=== PATIENT | female | born 1980 | race Caucasian/White ===

== ENCOUNTER → 2017-12-05 | Outpatient (CLI) | payer BC ==
[2017-12-05 13:42] LABS: BASO % 0.9 %; BASO ABS # 0.04 K/uL (0-0.2); EOS % 2.1 %; EOS ABS # 0.09 K/uL (0-0.5); HEMOGLOBIN 13.8 g/dL (12.0-16.0); IG# 0.01 K/uL (0.00-0.02); LYMPH % 30.6 %; LYMPH ABS # 1.33 K/uL (1.2-3.4); MEAN CELL VOLUME 87.4 fL (80-100); MEAN CORPUSCULAR HEMOGLOBIN 29.4 pg (25-34); MEAN CORPUSCULAR HGB CONC 33.7 g/dl (32-36); MONO % 8.8 %; MONO ABS # 0.38 K/uL (0.11-0.59); NEUT % 57.4 %; NEUT ABS # 2.49 K/uL (1.4-6.5); PLATELET COUNT 261 K/uL (130-400); RED CELL DISTRIBUTION WIDTH SD 41.6 fL (36.4-46.3); WHITE BLOOD COUNT 4.34 K/uL (4.8-10.8)
[2017-12-05 14:07] LABS: BLOOD UREA NITROGEN 10 mg/dl (7-18); CALCIUM 9.7 mg/dl (8.5-10.1); CARBON DIOXIDE 27 mmol/L (21-32); CREATININE 0.74 mg/dl (0.60-1.20); GLUCOSE 88 mg/dl (70-99); SODIUM 140 mmol/L (136-145)
== END | disposition home or self-care (01) ==
LOC: C.LABBC 10:39
PROVIDERS: ATTEND Orthopaedic Surgery
DX: Z01.818 Encounter for other preprocedural examination (principal)

== ENCOUNTER → 2017-12-22 | Day surgery (SDC) | payer BC ==
[2017-12-20 10:58] VITALS: Ht 165.1 cm; Wt 60.5 kg
[~2017-12-22] VITALS: Ht 165.1 cm; Wt 60.5 kg
[~2017-12-22] MED LIST: ATROPINE SULFATE 0.1 MG/ML 5ML SYR IV PRN; BUPIVACAINE 0.25% 30 ML VIAL ONE; CLINDAMYCIN PHOS 150 MG/ML 2 ML VIAL IV SCH; DEXAMETHASONE SOD INJ 4 MG/ML VIAL ONE; DiphenhydrAMINE HCL 50 MG/ML VIAL ONE; EpHEDrine SULFATE INJ 50 MG/ML AMP IV PRN; EpINEphrine INJ 1MG/ML AMP 1 MG/ML AMP ONE; FENTANYL CITRATE INJ 50 MCG/1 ML 2 ML VIAL IV PRN; FENTANYL CITRATE INJ 50 MCG/1 ML 2 ML VIAL ONE; FLUMAZENIL 0.1 MG/1 ML 10 ML VIAL IV PRN; FLUT0.15; HYDR200T5 PO; HYDROmorphone INJ 0.5 MG/0.5 ML SYR ONE; HYDROmorphone INJ 2 MG/ML SYR/VIAL IV PRN; KETO10TA PO; KETOROLAC TROMETHAMINE 30 MG/ML VIAL ONE; LABETALOL HCL IV 5 MG/ML 20ML IV PRN; LACTATED RINGER'S 1000ML 1,000 ML IV SCH; MIDAZOLAM HCL 1 MG/ML 2ML VIAL ONE; NALOXONE HCL 0.4 MG/1 ML VIAL/CARP IV PRN; NURSING VERBAL MED ORDER ONE; ONDANSETRON INJ 2 MG/ML 2 ML VIAL IV PRN; ONDANSETRON INJ 2 MG/ML 2 ML VIAL ONE; OXYC-57 PO; OXYCODONE/ACETAMINOPHEN 5-325 TAB PO PRN; PATIENT'S ALLERGY INFO NEEDS ENTERED SCH; PHENYLEPHRINE 100MCG/ML 5ML SYR IV PRN; PHENYLEPHRINE HCL INJ 10 MG/ML VIAL ONE; PROPOFOL IV EMULSION 10 MG/ML 20 ML VIAL IV ONE; PRT/20 PO; ROPIVACAINE 0.5% 5 MG/ML 30 ML VIAL ONE; SODIUM CHLORIDE 0.9% 1000ML 1,000 ML IV SCH
--- NOTE | 2017-12-22 09:37 | History & Physical Bridge Note ---
H&P Re-Evaluation Bridge Note: I have examined the patient, reviewed the History & Physical and in the interval since the performance of the History & Physical I have noted the following changes of clinical significance: No changes noted
--- NOTE | 2017-12-22 11:25 | [facility] Post Operative Brief Note ---
Immediate Operative Summary Operative Date Dec 22, 2017. Pre-Operative Diagnosis Right Shoulder AC Dislocation, Slap Tear Post-Operative Diagnosis Same Procedure(s) Performed Right Shoulder Arthroscopy, Acromioplasty, Distal Clavicle Resection, Open Biceps Tenodesis Surgeon Dr. [facility] Office Assistant Surgeon(s) Kay Barrera PA-C Estimated Blood Loss 5 ml Findings Consistent with Post-Op Diagnosis Specimens None Drains None Anesthesia Type General Regional Disposition Disposition: Recovery Room / PACU
--- NOTE | 2017-12-22 11:41 | Discharge Instructions-SurgCtr ---
Discharge Instructions Date of Service Dec 22, 2017. Visit Reason for Visit: Right Ac Dislocation, Slap Tear Discharge Discharge Diagnosis / Problem: right shoulder ac joint djd, bicep tendonitis, SLAP tear Discharge Goals Goal(s): Decrease discomfort, Improve function, Therapeutic intervention Activity Recommendations Activity Limitations: per Instructions/Follow-up section limited use of right arm Anesthesia . Post Anesthesia Instructions: If you have had General Anesthesia or IV Sedation: * Do not drive today. * Resume driving when surgeon permits. * Do not make important decisions or sign legal documents today. * Call surgeon for: 1. Temperature elevations greater than 101 degrees F. 2. Uncontrollable pain. 3. Excessive bleeding. 4. Persistent nausea and vomiting. 5. Medication intolerance (nausea, vomiting or rash). * For nausea and vomiting use only clear liquids such as: tea, soda, bouillon until nausea subsides, then gradually increase diet as tolerated. * If you have any concerns or questions, call your surgeon's office. If physician is unavailable and it is an emergency, call 911 or go to the nearest emergency room. . Instructions / Follow-Up Instructions / Follow-Up MEDICATIONS: * Resume previous medications unless instructed otherwise by your surgeon. * Always take pain medication on a full stomach or with food to avoid upset stomach. * Do not drink alcohol or drive while taking narcotics. * Ibuprofen or Tylenol may be taken if narcotic not needed. No ibuprofen while taking toradol SPECIAL CARE INSTRUCTIONS: __ None _x_ Keep extremity iced x 48 hours; apply ice 20-30 minutes 8-10 times/day. May remove at night. _x_ Sling __24 hrs/day __ Remove at night __ Shoulder Immobilizer __ 24 hrs/day __ Remove at night _x_ Dressing __ Maintain until seen in office, may shower with plastic over site _x_ Remove dressings in 24-48 hours and then may shower _x_ Cover incisions with band-aids after showering _x_ Do not remove steri-strips Call physician if chills or temperature rises above 102 degrees or pain unrelieved by prescribed pain medications at . . follow up as scheduled Diet Recommendations Home Diet: resume previous diet Procedures Procedures Performed: Right Shoulder Arthroscopy, Acromioplasty, Distal Clavicle Resection, Open Biceps Tenodesis Pending Studies Studies pending at discharge: no Medical Emergencies . Who to Call and When: Medical Emergencies: If at any time you feel your situation is an emergency, please call 911 immediately. . Non-Emergent Contact Non-Emergency issues call your: Surgeon . . "Provider Documentation" section prepared by Paulino Barrera. .
[2017-12-22] MEDS: MEPERIDINE HCL 25 MG/ML CARP IV PRN ×2 (12:04→12:11)
--- NOTE | 2017-12-22 12:49 | Anesthesia Progress Nt - [facility] ---
Anesthesia Post Op Note Date & Time Dec 22, 2017 at 12:47 Vital Signs Pain Intensity: 2 Vital Signs Past 12 Hours Date Time Temp Pulse Resp B/P (MAP) Pulse Ox O2 Delivery O2 Flow Rate FiO2 12/22/17 11:41 36.2 115 16 119/76 99 Mask 6 12/22/17 10:25 111/67 12/22/17 10:23 87 12/22/17 10:23 86 7 100 12/22/17 10:20 105/79 12/22/17 10:18 103 12/22/17 10:18 100 43 100 12/22/17 10:17 111 39 100 12/22/17 10:17 111 12/22/17 10:15 114/82 12/22/17 10:12 94 12/22/17 10:12 93 11 100 12/22/17 10:10 107/77 12/22/17 10:07 80 0 99 12/22/17 10:07 81 12/22/17 10:02 78 15 98 12/22/17 10:02 82 15 12/22/17 09:57 83 17 12/22/17 09:57 86 17 99 12/22/17 09:52 85 13 12/22/17 09:52 84 13 99 12/22/17 08:48 108/75 (86) 12/22/17 08:33 36.7 67 16 84/63 (70) 99 Room Air Notes Mental Status: alert / awake / arousable, participated in evaluation Pt Amnestic to Procedure: Yes Nausea / Vomiting: adequately controlled Pain: adequately controlled Airway Patency, RR, SpO2: stable & adequate BP & HR: stable & adequate Hydration State: stable & adequate Anesthetic Complications: no major complications apparent The patient did well. She was given Demerol in the PACU and her arm was noted to be red and itchy around the IV site. She had no other symptoms and her vitals were stable. She was given Benadryl and the redness resolved.
[2017-12-22 13:05] VITALS: TEMP 36.2
[2017-12-22 13:44] VITALS: BP 111/75; PULSE 81; O2SAT 98
--- NOTE | 2017-12-22 16:44 | OPERATIVE REPORT ---
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 POSTOPERATIVE DIAGNOSIS: Same. PROCEDURE: Right shoulder diagnostic arthroscopy with limited debridement, distal clavicle resection, acromioplasty and open subpec biceps tenodesis. SURGEON: Dr. Grant Harmon. [employer]ER: Arsenio Barrera PA-C, whose assistance was necessary for positioning of the arm and helping with instrumentation. ANESTHESIA: General with a right interscalene nerve block. COMPLICATIONS: None. CONDITION: Stable to PACU. INDICATIONS: Crystal is a pleasant 37-year-old female who fell down 3 stairs about 3 months ago and hyperextended her right shoulder. She is a therapist at [employer]. MRI and clinical examination were diagnostic for a superior labral tear with detachment of the biceps and AC joint arthritis. After failing conservative treatment, she elected to undergo arthroscopy. DESCRIPTION OF PROCEDURE: On 12/22/2017 she arrived at [facility] for the above procedure. She was seen in preoperative holding area and the operative extremity was identified and signed. She was given a preoperative antibiotic and a right interscalene nerve block. She was taken back to the operating room, laid on the table in supine position and put under general anesthesia. She was then put into the beach chair position. The right shoulder was prepped and draped in sterile fashion. Time-out was done. The patient and the operative extremity was properly identified. On preoperative physical examination she had full range of motion of the shoulder. The scope was placed in the posterior portal. Diagnostic arthroscopy showed no cartilage damage to the humeral head or the glenoid. There was a type 2 SLAP tear with detachment of the superior labrum as well as complete detachment of the long head of the biceps tendon. The supraspinatus, infraspinatus, teres minor and subscapularis were all checked and intact. An anterior portal was made. A shaver was used to do a limited debridement of the intraarticular structures. Given her age and this type of SLAP tear I felt it was best to treat her with an open biceps tenodesis. The biceps tendon was then arthroscopically tenotomized. The scope was then put into the subacromial space. A lateral portal was made. A shaver was used to do a complete subacromial and subdeltoid bursectomy. An ablator was used to tease the coracoacromial ligament off the undersurface of the acromion and a 5-0 germain was used to complete an acromioplasty of a Bigliani type 2 acromion. A shaver was used to remove any excess debris and attention was turned to the distal clavicle. Through an anterior portal, a shaver and ablator were used to skeletonize the distal clavicle. A 5-0 germain was then used to resect the distal 7 mm from the clavicle. Complete resection was checked under direct visualization. The bursal side of the rotator cuff was then examined extensively without evidence of tear. Final diagnostic arthroscopy showed no additional pathology. Arthroscopic instruments were removed from the shoulder. Attention was turned to an open biceps tenodesis. A small incision was made over the inferior border of the pectoralis major. Dissection was taken down through the fascia and the long head of the biceps tendon was delivered out of the wound. The tendon was then whip stitched at the anticipated level of tenodesis and the remainder of the tendon was discarded. A 6 mm hole was drilled in the biceps groove and the biceps tendon was tenodesed with an Arthrex biceps button that was passed through the posterior cortex in a tension slide technique to deliver the tendon into the 6 mm hole. This gave good fixation. The wound was then irrigated, closed with 3-0 Vicryl and running 3-0 Monocryl. Steri-strips were placed. Portal sites were closed with 3-0 nylon. She was then placed in a soft dressing and a regular arm sling. She was then extubated, transferred to a [facility] and taken to the post-anesthesia care unit in stable condition. She tolerated the procedure well. I attest to the content of the Intraoperative Record and any orders documented therein. Any exception s are noted below.
== END | disposition home or self-care (01) ==
LOC: X.SURG 08:14
PROVIDERS: ATTEND Orthopaedic Surgery
DX: S43.431A Superior glenoid labrum lesion of right shoulder, initial encounter (principal); W10.9XXA Fall (on) (from) unspecified stairs and steps, initial encounter; M06.9 Rheumatoid arthritis, unspecified; Z88.0 Allergy status to penicillin; Z90.89 Acquired absence of other organs; Z98.890 Other specified postprocedural states; Z82.49 Family history of ischemic heart disease and other diseases of the circulatory system; Z83.3 Family history of diabetes mellitus